=== PATIENT | female | born 1990 | race African-American/Black ===

== ENCOUNTER 2019-05-28 05:13 | Emergency (ER) | payer SELFPAY ==
[~2019-05-28] VITALS: Ht 154.9 cm; Wt 61.0 kg
[2019-05-28 05:46] VITALS: BP 118/76
== END 2019-05-28 06:59 | disposition left against medical advice (07) ==
LOC: ER 06:29
DX: Z53.21 Procedure and treatment not carried out due to patient leaving prior to being seen by health care provider (principal)

== ENCOUNTER 2019-08-15 20:54 | Emergency (ER) | payer SELFPAY ==
[~2019-08-15] VITALS: Ht 152.4 cm; Wt 54.0 kg
[2019-08-15] MEDS ORDERED: IBUPROFEN 800MG TABLET PO ONE (23:30)
[2019-08-15 23:54] LABS: CLARITY URINE CLOUDY (CLEAR); COLOR URINE DARK YELLOW (YELLOW); KETONES URINE TRACE (NEGATIVE); LEUKOCYTE ESTERASE URINE TRACE (NEGATIVE); NITRITE URINE POSITIVE (NEGATIVE); OCCULT BLOOD URINE 2+ (NEGATIVE); PH URINE 5.5 (4.5-8.0); PROTEIN URINE 1+ (NEGATIVE); SPECIFIC GRAVITY URINE 1.038 (1.005-1.030)
[2019-08-16 02:21] VITALS: BP 107/63
== END 2019-08-16 02:25 | disposition home or self-care (01) ==
LOC: ER 20:54
DX: N39.0 Urinary tract infection, site not specified (principal)
CPT/HCPCS: 81003; 81025; 99283

== ENCOUNTER 2022-08-10 08:38 | Inpatient (IN) | payer MEDICAID ==
[2022-08-10] VITALS (45 sets, daily range): BP systolic 117–185; BP diastolic 24–91
[~2022-08-10] VITALS: Ht 167.6 cm; Wt 90.7 kg
[2022-08-10] MEDS ORDERED: MAGNESIUM 4 G PREMIX 100 ML IV ONE (09:30)
[2022-08-10] MEDS ORDERED: MAGNESIUM 2 G PREMIX 50 ML IV ONE ×2 (09:30→10:15)
[2022-08-10] MEDS ORDERED: SODIUM CHLORIDE 0.9% 1,000 ML IV ONE (09:30)
[2022-08-10 09:46] LABS: BASOPHILS % 0.2 % (0.0-2.0); EOSINOPHILS % 1.3 % (0.0-5.0); HEMATOCRIT. 35.1 % (36.0-48.0); HEMOGLOBIN. 10.5 g/dL (12.0-16.0); LYMPHOCYTES % 35.8 % (20.0-50.0); MEAN CORPUSCULAR HEMOGLOBIN 26.7 pg (28.0-32.0); MEAN CORPUSCULAR VOLUME 89.1 fL (81.0-99.0); MEAN PLATELET VOLUME 7.9 fl (7.4-10.4); MONOCYTES % 7.2 % (2.0-8.0); NEUTROPHILS % 55.5 % (40.0-76.0); PLATELET 341 x1000/uL (130-400); RED BLOOD CELL COUNT 3.94 mill/uL (4.2-5.4)
[2022-08-10 09:48] LABS: CHLORIDE 109 mEq/L (98-107)
[2022-08-10 09:54] LABS: INR 0.9; PROTHROMBIN TIME 9.9 sec (9.6-11.0)
[2022-08-10 09:59] LABS: CREATINE KINASE 140 IU/L (26-192); ETHANOL BLOOD < 10 mg/dL
[2022-08-10] MEDS ORDERED: LORAZEPAM 2MG/ML CPJ IV ONE (10:00)
[2022-08-10] MEDS ORDERED: PROPOFOL 10MG/ML 100ML 100 ML IV SCH (10:15)
[2022-08-10] MEDS ORDERED: SUCCINYLCHOLINE CHLORIDE 200MG/10ML IV ONE (10:45)
[2022-08-10] MEDS ORDERED: FENTANYL CITRATE/PF 50MCG/ML 2ML VIAL IV PRN (10:45)
[2022-08-10] MEDS ORDERED: FENTANYL 2500MCG/250ML PMX 250 ML IV ONE (10:45)
[2022-08-10] MEDS ORDERED: ETOMIDATE 2MG/ML 10ML VIAL IV ONE (10:45)
[2022-08-10 11:11] LABS: CLARITY URINE CLEAR (CLEAR); COLOR URINE YELLOW (YELLOW); KETONES URINE NEGATIVE (NEGATIVE); LEUKOCYTE ESTERASE URINE NEGATIVE (NEGATIVE); NITRITE URINE NEGATIVE (NEGATIVE); OCCULT BLOOD URINE 1+ (NEGATIVE); PH URINE 6.5 (4.5-8.0); PROTEIN URINE 1+ (NEGATIVE); SPECIFIC GRAVITY URINE 1.014 (1.005-1.030)
[2022-08-10 12:59] LABS: *AMPHETAMINES SCREEN URINE NEGATIVE (NEGATIVE); *BARBITURATES SCREEN URINE NEGATIVE (NEGATIVE); *BENZODIAZEPINES SCREEN URINE NEGATIVE (NEGATIVE); *COCAINE SCREEN URINE NEGATIVE (NEGATIVE); CANNABINOID URINE SCREEN NEGATIVE (NEGATIVE); METHADONE URINE SCREEN NEGATIVE (NEGATIVE); OPIATES URINE SCREEN NEGATIVE (NEGATIVE); PHENCYCLIDINE URINE SCREEN NEGATIVE (NEGATIVE)
[2022-08-10 13:02] LABS: BG BASE EXCESS -3.2 mmol/L (-2.0-2.0); BG CARBOXYHEMOGLOBIN 0.3 % (0.5-1.5); BG DEOXYHEMOGLOBIN 0.3 % (0.0-5.0); BG FRACTION INSPIRED OXYGEN 100; BG HCO3 ACT 18.2 mmol/L (22.0-26.0); BG OXYGEN SATURATION 99.7 % (92.0-98.5); BG OXYHEMOGLOBIN 98.4 % (94.0-97.0); BG PH 7.536 (7.350-7.450); BG PO2 526.8 mmHg (75.0-100.0); BG SAMPLE SITE RIGHT RADIAL; BG TOTAL HEMOGLOBIN 9.6 g/dL (12.0-18.0); BG VENT MODE VENT - AC
[2022-08-10] MEDS ORDERED: ONDANSETRON HCL 4MG/2ML INJ IV PRN (13:30)
[2022-08-10] MEDS ORDERED: ACETAMINOPHEN 325MG TABLET PO PRN (13:30)
[2022-08-10] MEDS: PIPERACILLIN/TAZOBACTAM 3.375 G in DEXTROSE 5% WATER 50 ML IV SCH ×2 (14:00→23:02)
[2022-08-10] MEDS: HYDRALAZINE 20MG/ML VIAL IV PRN (14:17)
[2022-08-10] MEDS ORDERED: IPRATROPIUM/ALBUTEROL 0.5-3(2.5)MG/3ML NEB HHN PRN (15:15)
[2022-08-10] MEDS ORDERED: DOCUSATE SODIUM SUGAR FREE 100MG/10ML UDC NG PRN (15:15)
[2022-08-10 15:21] LABS: T4 FREE 1.26 ng/dL (0.76-1.46)
[2022-08-10] MEDS ORDERED: VANCOMYCIN 1G PREMIX 200 ML IV NR (15:30)
[2022-08-10] MEDS ORDERED: DEXT 5%/0.45% NACL 500ML 500 ML IV NR (15:30)
[2022-08-10] MEDS ORDERED: ENOXAPARIN 40MG/0.4ML SYR SUBCUT SCH (16:00)
[2022-08-10] MEDS: LEVETIRACETAM 500MG PREMIX 100 ML IV SCH ×2 (18:09→22:00)
[2022-08-10] MEDS: FAMOTIDINE 20MG/2ML VIAL IV SCH (18:10)
[2022-08-10] MEDS: PROPOFOL 10MG/ML 100ML 100 ML IV PRN ×2 (18:42→22:19)
[2022-08-10 19:14] LABS: CHLORIDE 110 mEq/L (98-107)
[2022-08-10] MEDS: VANCOMYCIN 750MG PREMIX 150 ML IV SCH (22:10)
[2022-08-11] VITALS (92 sets, daily range): BP systolic 106–166; BP diastolic 56–89
[2022-08-11 04:54] LABS: BASOPHILS % 0.5 % (0.0-2.0); EOSINOPHILS % 0.9 % (0.0-5.0); HEMATOCRIT. 25.1 % (36.0-48.0); MEAN CORPUSCULAR HEMOGLOBIN 26.9 pg (28.0-32.0); MEAN CORPUSCULAR VOLUME 83.9 fL (81.0-99.0); MONOCYTES % 9.2 % (2.0-8.0); NEUTROPHILS % 62.4 % (40.0-76.0); PLATELET 193 x1000/uL (130-400); RED CELL DISTRIBUTION WIDTH 19.3 % (11.6-14.6)
[2022-08-11] MEDS: PROPOFOL 10MG/ML 100ML 100 ML IV PRN ×4 (04:59→19:40)
[2022-08-11 05:25] LABS: CHLORIDE 110 mEq/L (98-107)
[2022-08-11 05:37] LABS: HAPTOGLOBIN 164 mg/dL (30-200)
[2022-08-11] MEDS: PIPERACILLIN/TAZOBACTAM 3.375 G in DEXTROSE 5% WATER 50 ML IV SCH ×3 (05:44→22:30)
[2022-08-11] MEDS: VANCOMYCIN 750MG PREMIX 150 ML IV SCH ×3 (05:45→21:34)
[2022-08-11] MEDS ORDERED: FENTANYL 2500MCG/250ML PMX 250 ML IV PRN (08:00)
[2022-08-11] MEDS: LEVETIRACETAM 500MG PREMIX 100 ML IV SCH ×2 (08:27→20:40)
[2022-08-11 08:31] LABS: BG BASE EXCESS -3.3 mmol/L (-2.0-2.0); BG CARBOXYHEMOGLOBIN 0.3 % (0.5-1.5); BG FRACTION INSPIRED OXYGEN 40; BG HCO3 ACT 21.1 mmol/L (22.0-26.0); BG METHEMOGLOBIN 0.9 % (0.0-1.5); BG OXYHEMOGLOBIN 97.8 % (94.0-97.0); BG PCO2 35.4 mmHg (35.0-45.0); BG PH 7.394 (7.350-7.450); BG PO2 166.2 mmHg (75.0-100.0); BG SAMPLE SITE RIGHT RADIAL; BG TOTAL HEMOGLOBIN 9.4 g/dL (12.0-18.0); BG TOTAL RESPIRATORY RATE 14 b/min; BG VENT MODE VENT - AC
[2022-08-11] MEDS ORDERED: PANTOPRAZOLE SODIUM 40 MG/VIAL IV SCH (09:00)
[2022-08-11] MEDS ORDERED: KCL 20MEQ/100ML PREMIX 100 ML IV SCH (09:00)
[2022-08-11] MEDS: MAGNESIUM 20 G PREMIX (L & D) 500 ML IV SCH ×2 (09:06→19:32)
[2022-08-11] MEDS: FAMOTIDINE 20MG/2ML VIAL IV SCH (09:22)
[2022-08-11] MEDS ORDERED: DEXT 5%/0.45% NACL 500ML 500 ML IV SCH (10:00)
[2022-08-11] MEDS: DEXT 5%/0.45% NACL 1000ML 1,000 ML IV SCH ×2 (11:37→23:25)
[2022-08-11] MEDS ORDERED: LIDOCAINE HCL/PF 1% 10 MG/ML 5ML VIAL ONE (12:58)
[2022-08-11] MEDS ORDERED: PROPOFOL 10MG/ML 100ML 100 ML IV PRN (18:30)
[2022-08-11 20:28] LABS: BASOPHILS % 0.3 % (0.0-2.0); HEMATOCRIT. 28.5 % (36.0-48.0); HEMOGLOBIN. 9.3 g/dL (12.0-16.0); LYMPHOCYTES % 23.7 % (20.0-50.0); MEAN CORPUSCULAR HEMOGLOBIN 26.7 pg (28.0-32.0); MEAN PLATELET VOLUME 7.1 fl (7.4-10.4); MONOCYTES % 9.2 % (2.0-8.0); NEUTROPHILS % 65.8 % (40.0-76.0); PLATELET 298 x1000/uL (130-400); RED BLOOD CELL COUNT 3.47 mill/uL (4.2-5.4)
[2022-08-12] VITALS (81 sets, daily range): BP systolic 85–171; BP diastolic 28–100
[2022-08-12] MEDS: PROPOFOL 10MG/ML 100ML 100 ML IV PRN (00:13)
[2022-08-12] MEDS: PIPERACILLIN/TAZOBACTAM 3.375 G in DEXTROSE 5% WATER 50 ML IV SCH ×3 (05:36→20:40)
[2022-08-12] MEDS: VANCOMYCIN 750MG PREMIX 150 ML IV SCH (05:37)
[2022-08-12 06:02] LABS: BASOPHILS % 0.4 % (0.0-2.0); EOSINOPHILS % 1.7 % (0.0-5.0); HEMATOCRIT. 26.5 % (36.0-48.0); HEMOGLOBIN. 8.7 g/dL (12.0-16.0); LYMPHOCYTES % 18.2 % (20.0-50.0); MEAN CORPUSCULAR HEMOGLOBIN 26.9 pg (28.0-32.0); MEAN PLATELET VOLUME 7.3 fl (7.4-10.4); MONOCYTES % 9.3 % (2.0-8.0); NEUTROPHILS % 70.4 % (40.0-76.0); PLATELET 272 x1000/uL (130-400); RED BLOOD CELL COUNT 3.23 mill/uL (4.2-5.4); RED CELL DISTRIBUTION WIDTH 18.4 % (11.6-14.6)
[2022-08-12 06:31] LABS: CHLORIDE 109 mEq/L (98-107)
[2022-08-12 06:39] LABS: VANCOMYCIN TROUGH 19.3 ug/mL (5.0-10.0)
[2022-08-12 07:53] LABS: BG BASE EXCESS -4.9 mmol/L (-2.0-2.0); BG CARBOXYHEMOGLOBIN 0.3 % (0.5-1.5); BG DEOXYHEMOGLOBIN 1.7 % (0.0-5.0); BG HCO3 ACT 18.6 mmol/L (22.0-26.0); BG METHEMOGLOBIN 0.3 % (0.0-1.5); BG OXYGEN SATURATION 98.3 % (92.0-98.5); BG OXYHEMOGLOBIN 97.7 % (94.0-97.0); BG PCO2 28.8 mmHg (35.0-45.0); BG PH 7.428 (7.350-7.450); BG PO2 135.6 mmHg (75.0-100.0); BG SAMPLE SITE RIGHT RADIAL; BG TOTAL HEMOGLOBIN 9.5 g/dL (12.0-18.0); BG VENT MODE VENT - AC
[2022-08-12] MEDS: FAMOTIDINE 20MG/2ML VIAL IV SCH (08:50)
[2022-08-12] MEDS: LEVETIRACETAM 500MG PREMIX 100 ML IV SCH ×2 (08:51→20:06)
[2022-08-12 10:50] LABS: BG BASE EXCESS -4.1 mmol/L (-2.0-2.0); BG CARBOXYHEMOGLOBIN 0.3 % (0.5-1.5); BG DEOXYHEMOGLOBIN 1.6 % (0.0-5.0); BG FRACTION INSPIRED OXYGEN 30; BG HCO3 ACT 19.9 mmol/L (22.0-26.0); BG METHEMOGLOBIN 0.3 % (0.0-1.5); BG OXYGEN SATURATION 98.4 % (92.0-98.5); BG OXYHEMOGLOBIN 97.8 % (94.0-97.0); BG PCO2 32.1 mmHg (35.0-45.0); BG PO2 141.4 mmHg (75.0-100.0); BG SAMPLE SITE RIGHT RADIAL; BG TOTAL HEMOGLOBIN 9.2 g/dL (12.0-18.0); BG VENT MODE VENT - CPAP
[2022-08-12 12:51] LABS: BG BASE EXCESS -4.3 mmol/L (-2.0-2.0); BG CARBOXYHEMOGLOBIN 0.3 % (0.5-1.5); BG DEOXYHEMOGLOBIN 1.4 % (0.0-5.0); BG HCO3 ACT 19.5 mmol/L (22.0-26.0); BG METHEMOGLOBIN 0.5 % (0.0-1.5); BG OXYGEN SATURATION 98.6 % (92.0-98.5); BG OXYHEMOGLOBIN 97.8 % (94.0-97.0); BG PH 7.416 (7.350-7.450); BG PO2 140.7 mmHg (75.0-100.0); BG SAMPLE SITE RIGHT RADIAL; BG TOTAL HEMOGLOBIN 9.6 g/dL (12.0-18.0); BG TOTAL RESPIRATORY RATE 16 b/min; BG VENT MODE VENT - CPAP
[2022-08-12] MEDS: DEXT 5%/0.45% NACL 1000ML 1,000 ML IV SCH (15:44)
[2022-08-12] MEDS ORDERED: VANCOMYCIN 1G PREMIX 200 ML IV SCH (21:00)
[2022-08-13] VITALS (29 sets, daily range): BP systolic 92–176; BP diastolic 33–111
[2022-08-13] MEDS: HYDRALAZINE 20MG/ML VIAL IV PRN ×2 (03:36→12:18)
[2022-08-13] MEDS: DEXT 5%/0.45% NACL 1000ML 1,000 ML IV SCH ×2 (04:13→16:47)
[2022-08-13 04:43] LABS: CHLORIDE 112 mEq/L (98-107)
[2022-08-13 04:49] LABS: HEMATOCRIT 25.3 % (36.0-48.0); HEMOGLOBIN 8.4 g/dL (12.0-16.0); MEAN CORPUSCULAR VOLUME 81.4 fL (81.0-99.0); PLATELET 281 x1000/uL (130-400); RED BLOOD CELL COUNT 3.11 mill/uL (4.2-5.4); RED CELL DISTRIBUTION WIDTH 18.6 % (11.6-14.6)
[2022-08-13] MEDS: PIPERACILLIN/TAZOBACTAM 3.375 G in DEXTROSE 5% WATER 50 ML IV SCH ×5 (05:48→21:22)
[2022-08-13] MEDS: LEVETIRACETAM 500MG PREMIX 100 ML IV SCH ×2 (08:26→21:22)
[2022-08-13] MEDS: FAMOTIDINE 20MG/2ML VIAL IV SCH (08:26)
[2022-08-13] MEDS ORDERED: POTASSIUM CHLORIDE 20MEQ/PACKET PO NR (11:30)
[2022-08-13] MEDS ORDERED: LEVO500T90 MT (12:22)
[2022-08-13] MEDS ORDERED: KEPP500 MT (12:22)
[2022-08-13] MEDS ORDERED: POTASSIUM CHLORIDE INJ 40 MEQ in DEXT 5% WATER 250 ML IV ONE (16:45)
[2022-08-13] MEDS: KCL 20MEQ/100ML X 2 FOR TOTAL KCL 40MEQ/200ML IV SCH ×2 (16:47→18:51)
[2022-08-13] MEDS ORDERED: HYDRALAZINE 10 MG in SODIUM CHLORIDE 0.9% 49.5 ML IV PRN (21:15)
[2022-08-14] VITALS (7 sets, daily range): BP systolic 119–163; BP diastolic 55–81
[2022-08-14] MEDS: DEXT 5%/0.45% NACL 1000ML 1,000 ML IV SCH ×2 (04:12→18:15)
[2022-08-14] MEDS: PIPERACILLIN/TAZOBACTAM 3.375 G in DEXTROSE 5% WATER 50 ML IV SCH ×2 (05:24→13:36)
[2022-08-14] MEDS: FAMOTIDINE 20MG/2ML VIAL IV SCH (09:02)
[2022-08-14] MEDS: LEVETIRACETAM 500MG PREMIX 100 ML IV SCH (09:02)
[2022-08-14] MEDS ORDERED: CITALOPRAM HYDROBROMIDE 10MG TABLET PO SCH (15:30)
[2022-08-14] MEDS ORDERED: TRAZODONE HCL 50MG TABLET PO SCH (21:00)
== END 2022-08-14 19:20 | disposition home or self-care (01) | DRG 561 ==
LOC: ER 09:27 → MICUNO 12:30 → ENRESERV 12:47 → 6EST 08-13 19:30
PROVIDERS: ADMIT Internal Medicine; ATTEND Internal Medicine
PROC: 5A1945Z Respiratory Ventilation, 24-96 Consecutive Hours (ICD-10-PCS; 2022-08-10)
PROC: 0BH17EZ Insertion of Endotracheal Airway into Trachea, Via Natural or Artificial Opening (ICD-10-PCS; 2022-08-10)
PROC: 4A10X4Z Monitoring of Central Nervous Electrical Activity, External Approach (ICD-10-PCS; principal; 2022-08-11)
PROC: 02HV33Z Insertion of Infusion Device into Superior Vena Cava, Percutaneous Approach (ICD-10-PCS; 2022-08-11)
PROC: B548ZZA Ultrasonography of Superior Vena Cava, Guidance (ICD-10-PCS; 2022-08-11)
DX: O98.83 Other maternal infectious and parasitic diseases complicating the puerperium (principal); J96.00 Acute respiratory failure, unspecified whether with hypoxia or hypercapnia; A41.89 Other specified sepsis; O15.2 Eclampsia complicating the puerperium; J18.9 Pneumonia, unspecified organism; E87.3 Alkalosis; G40.801 Other epilepsy, not intractable, with status epilepticus; E88.09 Other disorders of plasma-protein metabolism, not elsewhere classified; O99.893 Other specified diseases and conditions complicating puerperium; O16.5 Unspecified maternal hypertension, complicating the puerperium; O99.355 Diseases of the nervous system complicating the puerperium; O90.81 Anemia of the puerperium; O99.53 Diseases of the respiratory system complicating the puerperium; R00.1 Bradycardia, unspecified; O99.285 Endocrine, nutritional and metabolic diseases complicating the puerperium; E87.8 Other disorders of electrolyte and fluid balance, not elsewhere classified; E78.5 Hyperlipidemia, unspecified; E03.8 Other specified hypothyroidism; O25.3 Malnutrition in the puerperium; O90.89 Other complications of the puerperium, not elsewhere classified; F43.0 Acute stress reaction; E87.6 Hypokalemia
CPT/HCPCS: 31500; 36415; 36573; 36600; 70551; 71045; 80048; 80053; 80061; 80076; 80202; 80305; 80320; 81003; 82375; 82533; 82550; 82805; 82962; 83010; 83540; 83550; 83605; 83615; 83735; 84145; 84439; 84443; 84478; 84484; 84550; 85025; 85027; 85044; 92610; 93970; 94002; 94003; 94640; 95816; 97162; 99291; C1725; J0360; J1953; J2060; J2405; J2543; J2704; J3010; J3370; J3475; J3480; J3490; J7030; J7060; G0480

== ENCOUNTER 2024-12-19 08:51 | Emergency (ER) | payer MEDICAID ==
[~2024-12-19] VITALS: Ht 152.4 cm; Wt 63.5 kg
[~2024-12-19 08:51] MED LIST: KEPP500 MT; LEVO-65 MT
[2024-12-19 08:56] VITALS: TEMP 37.1; O2SAT 100
[2024-12-19] MEDS ORDERED: MECLIZINE 25MG TABLET PO ONE (09:45)
[2024-12-19 10:28] LABS: BASOPHILS % 0.5 % (0.0-2.0); EOSINOPHILS % 1.1 % (0.0-5.0); HEMATOCRIT. 31.3 % (36.0-48.0); HEMOGLOBIN. 9.9 g/dL (12.0-16.0); MEAN CORPUSCULAR HEMOGLOBIN 25.6 pg (28.0-32.0); MEAN CORPUSCULAR HGB CONC 31.7 g/dL (31.0-37.0); MEAN CORPUSCULAR VOLUME 80.9 fL (81.0-99.0); MEAN PLATELET VOLUME 8.3 fl (7.4-10.4); MONOCYTES % 7.5 % (2.0-8.0); NEUTROPHILS % 55.9 % (40.0-76.0); PLATELET 305 x1000/uL (130-400); RED BLOOD CELL COUNT 3.87 mill/uL (4.2-5.4); RED CELL DISTRIBUTION WIDTH 17.6 % (11.6-14.6); WHITE BLOOD COUNT 7.5 x1000/uL (4.5-11.0)
[2024-12-19 10:35] LABS: INR 0.9; PROTHROMBIN TIME 10.5 sec (9.6-11.0)
[2024-12-19 10:37] LABS: CHLORIDE 109 mEq/L (98-107); POTASSIUM 4.4 mEq/L (3.5-5.1); SODIUM 142 mEq/L (136-145)
[2024-12-19 10:38] LABS: CALCIUM 9.5 mg/dL (8.7-10.4); CARBON DIOXIDE 24 mEq/L (21-32)
[2024-12-19 10:40] LABS: HCG SCREEN NEGATIVE
[2024-12-19 10:43] LABS: CREATININE 0.8 mg/dL (0.6-1.0); GLUCOSE 106 mg/dL (70-105); UREA NITROGEN BLOOD 11 mg/dL (9-23)
[2024-12-19] MEDS: MECLIZINE 25MG TABLET PO NR (12:17)
[2024-12-19] MEDS ORDERED: MECL-299 MT (12:43)
[2024-12-19 12:48] VITALS: BP 127/54; PULSE 63; RESP 17; O2SAT 99
== END 2024-12-19 12:57 | disposition home or self-care (01) ==
LOC: ER 09:00
DX: R51.9 Headache, unspecified (principal); R42 Dizziness and giddiness
CPT/HCPCS: 99284; 70450; 80048; 84703; 85025; 85610; 86850; 86900; 86901; 36415; 93005; J8597